=== PATIENT | female | born 1990 | race Two or more races ===

== ENCOUNTER 2023-02-16 21:40 | Emergency (ER) | payer MEDICAID, OTHER ==
[~2023-02-16] VITALS: Ht 172.7 cm; Wt 90.0 kg
[2023-02-17 00:07] VITALS: BP 125/76; PULSE 89; RESP 20; TEMP 98.7; O2SAT 98
== END 2023-02-17 00:34 | disposition home or self-care (01) ==
LOC: EDBD 21:40 → EDUNIT# 21:40 → ER 21:40
DX: S16.1XXA Strain of muscle, fascia and tendon at neck level, initial encounter (principal); V89.2XXA Person injured in unspecified motor-vehicle accident, traffic, initial encounter; Y93.I9 Activity, other involving external motion; Y92.89 Other specified places as the place of occurrence of the external cause; Y99.8 Other external cause status
CPT/HCPCS: 72040